=== PATIENT | male | born 1970 | race Native Hawaiian/Other Pacific Islander ===

== ENCOUNTER 2016-11-07 09:43 | Outpatient (CLI) | payer OTHER ==
[~2016-11-07 09:43] MED LIST: CIPRO500 MG PO; CYCL10TA35 PO; HYDR-2748 PO; INSU100I2 SC
== END 2016-11-07 10:45 | disposition home or self-care (01) ==
LOC: RAD 09:43
DX: M86.8X7 Other osteomyelitis, ankle and foot (principal)

== ENCOUNTER 2016-12-27 15:21 | Inpatient (IN) | payer BC ==
[2016-12-27] VITALS (11 sets, daily range): BP systolic 105–132; BP diastolic 58–74; TEMP 98–99.3; Ht 182.9 cm; Wt 74.6 kg
[~2016-12-27] VITALS: Ht 182.9 cm; Wt 74.6 kg
[2016-12-27 16:29] LABS: PLATELET COUNT 323 K/uL (142-355)
[2016-12-27 16:39] LABS: POTASSIUM 5.3 mmol/L (3.6-5.2)
[2016-12-27 20:17] LABS: POTASSIUM 5.5 mmol/L (3.6-5.2)
[2016-12-28] VITALS (23 sets, daily range): BP systolic 111–162; BP diastolic 65–95; TEMP 98–99
[2016-12-28 00:32] LABS: POTASSIUM 4.3 mmol/L (3.6-5.2)
[2016-12-28 06:28] LABS: POTASSIUM 4.1 mmol/L (3.6-5.2)
[2016-12-28 06:48] LABS: PLATELET COUNT 314 K/uL (142-355)
[2016-12-29] VITALS (23 sets, daily range): BP systolic 124–170; BP diastolic 76–104; TEMP 96.9–99
[2016-12-29 04:53] LABS: PLATELET COUNT 220 K/uL (142-355)
[2016-12-29 05:06] LABS: POTASSIUM 3.7 mmol/L (3.6-5.2); SODIUM 143 mmol/L (136-145)
[2016-12-30] VITALS (18 sets, daily range): BP systolic 128–171; BP diastolic 86–103; TEMP 98–99
[2016-12-30 07:54] LABS: PLATELET COUNT 202 K/uL (142-355)
[2016-12-30 08:16] LABS: POTASSIUM 3.8 mmol/L (3.6-5.2); SODIUM 140 mmol/L (136-145)
[2016-12-31] VITALS (10 sets, daily range): BP systolic 137–174; BP diastolic 85–100; TEMP 98–99.3
[2016-12-31 09:03] LABS: POTASSIUM 3.3 mmol/L (3.6-5.2); SODIUM 142 mmol/L (136-145)
[2017-01-01] VITALS: BP 128/69; TEMP 98.6
[2017-01-01 04:00] VITALS: BP 133/82; TEMP 98.3
[2017-01-01 05:37] LABS: POTASSIUM 3.4 mmol/L (3.6-5.2); SODIUM 141 mmol/L (136-145)
[2017-01-01 08:00] VITALS: BP 139/87; TEMP 99
== END 2017-01-01 10:40 | disposition home or self-care (01) | DRG 638 ==
LOC: ED 15:21 → ICU 17:15 → MED/SURG 12-31 11:30
PROVIDERS: Emergency Medicine; Internal Medicine
DX: E10.10 Type 1 diabetes mellitus with ketoacidosis without coma (principal); E87.2 Acidosis; J06.9 Acute upper respiratory infection, unspecified; G47.09 Other insomnia; Z91.14 Patient's other noncompliance with medication regimen; R03.0 Elevated blood-pressure reading, without diagnosis of hypertension
CPT/HCPCS: 36415; 36600; 80048; 80053; 80307; 81000; 81002; 82150; 82550; 82805; 82947; 82948; 82962; 83036; 83605; 83690; 83735; 84443; 85027; 87081; 87880; 96365; 96372; 96374; 96375; 99285; G0479; J1650; J1815; J2405; J3411; J3490

== ENCOUNTER 2017-02-24 08:22 | Outpatient (CLI) | payer BC ==
[2017-02-24 08:55] LABS: PLATELET COUNT 251 K/uL (142-355)
[2017-02-24 09:06] LABS: POTASSIUM 4.7 mmol/L (3.6-5.2); SODIUM 137 mmol/L (136-145)
== END 2017-02-25 05:17 | disposition home or self-care (01) ==
LOC: LABW 08:22
PROVIDERS: Internal Medicine
DX: E10.9 Type 1 diabetes mellitus without complications (principal)
CPT/HCPCS: 36415; 80053; 80061; 81000; 82043; 82570; 83036; 84443; 85027

== ENCOUNTER 2018-02-05 14:27 | Emergency (ER) | payer OTHER ==
[~2018-02-05] VITALS: Ht 182.9 cm; Wt 73.5 kg
[2018-02-05 15:46] LABS: PLATELET COUNT 241 K/uL (142-355)
[2018-02-05 16:13] LABS: POTASSIUM 4.5 mmol/L (3.6-5.2)
[2018-02-05 16:45] VITALS: BP 151/92; TEMP 97.9
== END 2018-02-05 16:45 | disposition home or self-care (01) ==
LOC: ED 14:27
DX: S00.93XA Contusion of unspecified part of head, initial encounter (principal); E11.9 Type 2 diabetes mellitus without complications; W19.XXXA Unspecified fall, initial encounter
CPT/HCPCS: 36415; 80053; 82550; 82553; 84484; 85027; 93005; 99283

== ENCOUNTER 2018-10-23 12:13 | Inpatient (IN) | payer OTHER ==
[2018-10-23] VITALS (20 sets, daily range): BP systolic 92–130; BP diastolic 51–79; TEMP 98.1–98.8; Ht 182.9 cm; Wt 72.7 kg
[~2018-10-23] VITALS: Ht 182.9 cm; Wt 72.7 kg
[2018-10-23 12:52] LABS: PLATELET COUNT 258 K/uL (142-355)
[2018-10-23 13:07] LABS: POTASSIUM 4.5 mmol/L (3.6-5.2)
[2018-10-24] VITALS (24 sets, daily range): BP systolic 105–161; BP diastolic 62–96; TEMP 97.9–98.5
[2018-10-24 06:34] LABS: PLATELET COUNT 235 K/uL (142-355)
[2018-10-24 06:48] LABS: POTASSIUM 4.3 mmol/L (3.6-5.2)
[2018-10-25] VITALS (24 sets, daily range): BP systolic 101–171; BP diastolic 71–95; TEMP 98–98.9
[2018-10-25 03:14] LABS: PLATELET COUNT 203 K/uL (142-355)
[2018-10-25 03:23] LABS: POTASSIUM 3.4 mmol/L (3.6-5.2)
[2018-10-26] VITALS (9 sets, daily range): BP systolic 103–164; BP diastolic 67–90; TEMP 97.9–98.5
[2018-10-26 04:24] LABS: PLATELET COUNT 190 K/uL (142-355)
[2018-10-26 04:45] LABS: POTASSIUM 3.8 mmol/L (3.6-5.2)
== END 2018-10-26 09:45 | disposition home or self-care (01) | DRG 638 ==
LOC: ED 12:13 → PCU 17:45
PROVIDERS: Internal Medicine; Psychiatry & Neurology Neurology with Special Qualifications in Child Neurology; ADMIT Family Medicine
DX: E10.10 Type 1 diabetes mellitus with ketoacidosis without coma (principal); E87.2 Acidosis; Z79.4 Long term (current) use of insulin; E86.0 Dehydration; R82.4 Acetonuria; E87.6 Hypokalemia
CPT/HCPCS: 36415; 36600; 80053; 81000; 81002; 82150; 82805; 83690; 85027; 96360; 96361; 96375; 99285; J1815

== ENCOUNTER 2018-12-11 04:38 | Inpatient (IN) | payer OTHER ==
[2018-12-11] VITALS (22 sets, daily range): BP systolic 99–144; BP diastolic 52–84; TEMP 97.1–98.5; Ht 182.9 cm; Wt 69.9 kg
[~2018-12-11] VITALS: Ht 182.9 cm; Wt 69.9 kg
[2018-12-11 05:29] LABS: PLATELET COUNT 286 K/uL (142-355)
[2018-12-11 06:10] LABS: POTASSIUM 4.5 mmol/L (3.6-5.2); SODIUM 133 mmol/L (136-145)
--- NOTE | 2018-12-11 08:20 | NUR ---
PT TO ICU BED 1 FROM ER STRETCHER FROM ER. PT WITH IV NS AT 100CC/HR & INSULIN DRIP AT 5U/HR INFUSING INTO L AC 20G WITHOUT PROBLEMS.
--- NOTE | 2018-12-11 08:40 | NUR ---
DR CHANG IN TO SEE PT. NEW ORDERS.
[2018-12-11] MEDS ORDERED: LISI10TA11 PO (09:46)
[2018-12-11] MEDS ORDERED: HUMALOG KW100 UNIT/M SC (09:46)
[2018-12-11] MEDS ORDERED: TOUJEO SOL300 UNIT/M SC (09:48)
--- NOTE | 2018-12-11 10:55 | NUR ---
ABD XRAY TO DR CHANG. NEW ORDERS. PT RESTING SUPINE WITH EYES CLOSED.
--- NOTE | 2018-12-11 11:15 | NUR ---
RADIOLOGY IN FOR ABD US. PT RESTING ON R SIDE.
--- NOTE | 2018-12-11 12:30 | NUR ---
LAB HERE FOR BLOOD DRAW. PT RESTING IN LF. NO C/O AT THIS TIME.
[2018-12-11 13:03] LABS: POTASSIUM 4.2 mmol/L (3.6-5.2)
--- NOTE | 2018-12-11 14:15 | NUR ---
PT UP TO STAND AT BS. VD 450 ML MED LORRI URINE.
--- NOTE | 2018-12-11 16:40 | NUR ---
DR CHANG CALLED TO CK ON PT. REVIEWED LABS & XRAYS.
--- NOTE | 2018-12-11 18:00 | NUR ---
PT RESING QUIETLY WITH EYES CLOSED. NO C/O PAIN.
[2018-12-11 19:35] LABS: POTASSIUM 4.5 mmol/L (3.6-5.2)
--- NOTE | 2018-12-11 22:25 | NUR ---
PT VOIDED 300 ML OF YELLOW URINE. PT WITH NO COMPLAINTS.
[2018-12-12] VITALS (19 sets, daily range): BP systolic 117–174; BP diastolic 70–95; TEMP 97.4–98.7
--- NOTE | 2018-12-12 02:22 | NUR ---
LAB HERE TO DRAW BLOOD.
--- NOTE | 2018-12-12 04:11 | NUR ---
BS BEING CHECKED EVERY HOUR. KETONES ARE LARGE POSITIVE FROM BLOOD DRAW. PT ALERT AND HAS NOT SLEPT. NO COMPLAINTS OF NAUSEA OR VOMITING.
[2018-12-12 04:39] LABS: PLATELET COUNT 230 K/uL (142-355)
[2018-12-12 07:43] LABS: POTASSIUM 3.6 mmol/L (3.6-5.2)
--- NOTE | 2018-12-12 08:08 | NUR ---
AM ASSESSEMENT DONE PATIENT RESTING IN BED STATES "FEELING BETTER" NO NAUSEA NO PAINS. LABS DRAWN BLOOD SUGAR [address]CRE[address]ED D5NS TO 175. DR CHANG VISITED CHECKED PATIENT RECIEVED NEW ORDERS,
--- NOTE | 2018-12-12 08:15 | NUR ---
SMALL KETONES REPORTED.
--- NOTE | 2018-12-12 09:10 | NUR ---
SITTING UP IN BED BLOOD SUGAR 74 D5NS INFUSING AT 175 ML HR. INSULIN DRIP INFUSING AT 1 UNIT HR. RECIEVED DIET ORDERS PT ATE 100% 1800 ADA BREAKFAST. NO COMPLAINTS OF NAUSEA, WILL CONTINUE TO MONITOR BLOOD GLUCOSE. OFFERED TO ASSIT PT TO CHAIR. C/O BACK PAINS "FROM BED".
--- NOTE | 2018-12-12 09:56 | NUR ---
Patient was admitted with DKA and was in the hospital recently with DKA and he ran out of medicine and MD changed to a cheaper insulin lantus, patient could not afford insulin. On 1800 calorie diet and RBC and HGB and HCT depresses. ON SS insulin and having N/V and abd pain and is 6' at 156.1 lbs. and IBW 178+/-10% and is 88% IBW and BMI 21.2 and is wnl's and kcal for IBW 2400, pro 80-121 grams and fluids for weight x 30 = 2128 and x 35 d/t n/v = 2483 ml per day. Recommend: 1-Add a MVI 1 po q day 2-Increase Kcal to 2400 calorie and if eating <50% of meals add Glucerna to promote weight gain 3-Increase Fluids as tolerated.
--- NOTE | 2018-12-12 10:14 | NUR ---
BLOOD SUGAR 168, D5 NS TURNED DOWN TO 125 ML HR. FAMILY MEMBERS HERE FOR VISIT, BROUGHT HOME MEDS. PATIENT TOOK HIS OWN LISINOPRIL. RECIEVED CALLED FROM DR CARDENAS OFFICE TO RESUME LISINOPRIL PO BID AND TYLENOL PRN FOR PAIN. INSULIN DRIP CONTINUES AT 1 UNIT HR.
--- NOTE | 2018-12-12 11:13 | NUR ---
BLOOD SUGAR CONTINUE TO CLIMB. GLUCOSE FINGER STICK 231. WILL CHANGE IV FLUIDS FROM D5NS AT 125 TO NS AT 125. INSULIN DRIP CONTINUES AT 1 UNIT HR. PATIENT ATE ALL BREAKFAST TAKING PO DIABETIC FLUIDS. CONTINUE TO DENY ANY NAUSEA, UP TO BATHROOM FOR BM. PT HAVING DIARRHEA, STATES " I HAVE IT ALL THE TIME". WILL REPORT TO .
--- NOTE | 2018-12-12 11:55 | NUR ---
NOTED ELEVATED B/P PATIENT STATED THAT HE HASN'T TAKEN B/P MEDS IN A COUPLE OF DAYS. TOOK HIS LISINOPRIL THIS AM. WILL CONTINUE TO MONITOR. B/P 167/92. BACK TO BED AFTER GOING TO BATHROOM STATED THAT HIS BACK HAS EASED OFF FOR NOW, NO PAIN MED GIVEN.
--- NOTE | 2018-12-12 13:34 | NUR ---
PATIENT SITTING UP IN BED NO COMPLAINTS VOICE. ATE 100% LUNCH TRAY. INSULIN CONTINUES AT 1 UNIT HR. NS CONTINUES AT 125 ML HR. CHECKED BLOOD SUGAR 176. NO ACUTE DISTRESS.
--- NOTE | 2018-12-12 15:00 | NUR ---
CALL MADE TO LAB DRAW BMP AND SERUM KETONES NOW. CONTINUE TO MONITOR BLOOD SUGAR AND CHECKING POTASSIUM LEVEL. PATIENT SITTING UP IN BED ON PHONE, NO COMPLAINTS OF PAIN IV FLUIDS CONTINUE ORDERED.
[2018-12-12 15:19] LABS: POTASSIUM 4.2 mmol/L (3.6-5.2)
--- NOTE | 2018-12-12 16:00 | NUR ---
CALLED TO DR CHANG REPORT PT STATUS AND LABS, KETONES NEGATIVE RECIEVED ORDERS TO STOP INSULIN DRIP. START SSI AND SCHEDULED INSULIN. PT RESTING IN BED NO COMPLAINTS. NS CONTINUES AT 125.
--- NOTE | 2018-12-12 17:15 | NUR ---
ADMITTED 52 YEAR OLD MALE TO ICU FROM ER VIA STRETCHER. ADMITTED TO DR CAHNG SERVICES DX NEW ONSET SEIZURES,HTN, PATIENT ALERT TALKING PLACED ON MONITOR. PT INC OF URINE, SMELLS STRONG ODOR. ORIENTED TO ICU. LOU ARELLANO FROM ER ASSITED WITH PATIENT CARE.
--- NOTE | 2018-12-12 17:45 | NUR ---
DR CHANG HERE TO SEE PATIENT. GIVING ORDERS. DRAWING BLOOD FOR LABS. STARTING 2 IV SITES TO GIVE MEDS. STARTED D5W AND BICARB ORDERED. MIXING BANNA BAG. APPLIED CLONIDINE PATCH FOR FOR ELEVATED B/P.
--- NOTE | 2018-12-12 18:30 | NUR ---
PATIENT UP IN BED FOR DINNER FELICIA WELL NO COMPLAINTS BLOOD SUGAR 209 RECIEVED 6 UNITS NOVOLOG SQ. NO COMPLAINTS.
--- NOTE | 2018-12-12 20:00 | NUR ---
RECEIVED REPORT FROM CUAUHTEMOC SINGLETON RN. PATIENT IS RESTING QUIETLY. PATIENT REQUESTED ASSISTANCE WITH IV PUMP TO BATHROOM. PATIENT ABLE TO AMBULATE SLOWELY TO THE BATHROOM WITHOUT ASSISTANCE. UPON RETURN PATIENT STATED HE HAD ONE LOOSE BOWEL MOVEMENT. SHIFT ASSESSMENT COMPLETED AT THIS TIME.
--- NOTE | 2018-12-12 21:30 | NUR ---
CURRENT BLOOD SUGAR READING 378. PATIENT COVERED WITH 5 UNITS OF HUMALOG SUBQ TO HIS RIGHT ARM AND LEVEMIR 15 UNITS SUBQ TO THE RIGHT ARM. PATIENT TOLERATED WELL. WILL FOLLOW BLOOD SUGAR PRN AND BMP/CMP IN THE MORNING.
--- NOTE | 2018-12-12 23:36 | NUR ---
URINAL EMPTIED APPROX. 700 ML OF CLEAR YELLOW URINE NOTED. PATIENT IS RESTING WITH EYES CLOSED. NO ACUTE DISTRESS NOTED.
[2018-12-13] VITALS (12 sets, daily range): BP systolic 113–198; BP diastolic 77–95; TEMP 98–98.2
--- NOTE | 2018-12-13 02:16 | NUR ---
PATIENT IS RESTING WITH EYES CLOSED. NO ACUTE DISTRESS NOTED AT THIS TIME. CURRENT BLOOD PRESSURE READING 139/81.
--- NOTE | 2018-12-13 04:20 | NUR ---
PATIENT IS AWAKE WATCHING TV. PATIENT USED URINAL APPROX. 400 ML OF CLEAR YELLOW URINE NOTED. URINAL EMPTIED AND PLACED AT THE BEDSIDE.
--- NOTE | 2018-12-13 05:11 | NUR ---
LAB HERE AT THE BEDSIDE DRAWING MORNING LABS.
[2018-12-13 05:37] LABS: PLATELET COUNT 233 K/uL (142-355)
[2018-12-13 06:19] LABS: POTASSIUM 3.8 mmol/L (3.6-5.2)
--- NOTE | 2018-12-13 06:23 | NUR ---
THIS MORNING BMP SHOWED GLUCOSE OF 94. PATIENT IS CURRENTLY RESTING WITH EYES CLOSED IN NO ACUTE DISTRESS. CURRENT BLOOD PRESSURE READING 122/76.
--- NOTE | 2018-12-13 08:18 | NUR ---
PATIENT RESTING IN BED TAKING PO DIABETIC FLUIDS PO. STATES "FEELING OK" DENIES PAIN. IV FLUIDS INFUSING WITHOUT DIFFICULTY. DR BERNARDO GEORGE CHECKED PATIENT RECIEVED NEW ORDERS. PATIENT TO MOVE TO MED SURG FLOOR.
--- NOTE | 2018-12-13 09:00 | NUR ---
PATIENT SITTING UP IN BED NO COMPLAINTS, EATING BREAKFAST TALKING WITH PATIENT ABOUT DIABETES AND INSULIN. LAST SUGAR CHECK 0500 94. CHECKED BLOOD SUGAR AT THIS TIME 47. PATIENT RECIEVED LANTUS LAST NIGHT AT BEDTIME. CALL MADE TO DR CHANG. DID NOT CHANGE INSULIN ORDERS PT WILL NEED TO GET SNACKS BETWEEN MEALS. TO KEEP BLOOD SUGAR FROM DROPPING. PATIENT ATE ALL BREAKFAST WILL RECHECK IN 1 HOUR.
--- NOTE | 2018-12-13 10:00 | NUR ---
BLOOD SUGAR CHECKED 121 PT STATES "FEELING OK"
--- NOTE | 2018-12-13 11:00 | NUR ---
NAKIA REDD DIETITIAN STOPPED TALKED WITH PATIENT ABOUT DIABETES AND DIETS.
--- NOTE | 2018-12-13 12:15 | NUR ---
PATIENT MOVED TO ROOM 1116 VIA W/C ORIENTED TO ROOM. CALLED HIS TO BRING CLOTHS WILL TAKE A SHOWER. REPORT TO MED SURG FLOOR AGNES HERNANDEZ RN. PATIENT DISCHARGED FROM ICU.
--- NOTE | 2018-12-13 15:49 | NUR ---
1400 PT TRANSFERRED TO [facility] VIA PER CUAUHTEMOC SINGLETON RN. PT ASSISTED TO ROOM 116. PT AWAKE AND ALERT. NO ACUTE DISTRESS NTOED.
[2018-12-14] VITALS: BP 154/97; TEMP 98.4
[2018-12-14 04:00] VITALS: BP 130/86; TEMP 98.1
[2018-12-14 04:24] LABS: PLATELET COUNT 228 K/uL (142-355)
[2018-12-14 04:36] LABS: POTASSIUM 4.4 mmol/L (3.6-5.2)
[2018-12-14 08:00] VITALS: BP 142/79; TEMP 97.9
--- NOTE | 2018-12-14 09:30 | NUR ---
ENOXAPARIN SODIUM AND PROTONIX NOT GIVEN DUE TO PT BEING DISCHARGED.
== END 2018-12-14 10:50 | disposition home or self-care (01) | DRG 639 ==
LOC: ED 04:38 → ICU 06:44 → MED/SURG 12-13 12:15
PROVIDERS: Internal Medicine; ADMIT Student in an Organized Health Care Education/Training Program
DX: E10.10 Type 1 diabetes mellitus with ketoacidosis without coma (principal); Z79.4 Long term (current) use of insulin; E86.0 Dehydration; K80.20 Calculus of gallbladder without cholecystitis without obstruction
CPT/HCPCS: 36415; 36600; 80048; 80053; 81000; 81002; 82805; 82962; 83036; 83690; 83735; 84484; 85027; 87502; 93005; 96360; 96361; 96365; 96366; 96375; 99285; J1650; J1815; J1885; J2405; J3475; J3490

== ENCOUNTER 2019-01-08 12:44 | Outpatient (CLI) | payer OTHER ==
[~2019-01-08 12:44] MED LIST changes: +HUMALOG KW100 UNIT/M SC; +LISI10TA11 PO; +TOUJEO SOL300 UNIT/M SC
== END 2019-01-08 22:31 | disposition home or self-care (01) ==
LOC: NM 12:44
DX: K80.20 Calculus of gallbladder without cholecystitis without obstruction (principal)
CPT/HCPCS: A9537

== ENCOUNTER 2019-02-25 08:33 | Inpatient (IN) | payer OTHER ==
[~2019-02-25] VITALS: Ht 182.9 cm; Wt 69.0 kg
[2019-02-25] VITALS (10 sets, daily range): BP systolic 116–163; BP diastolic 80–92; TEMP 97.9–98.2; Ht 182.9 cm; Wt 69.0 kg
[2019-02-25 09:29] LABS: POTASSIUM 4.1 mmol/L (3.6-5.2); SODIUM 140 mmol/L (136-145)
[2019-02-25 09:36] LABS: PARTIAL THROMBOPLASTIN TIME 24.6 SECONDS (24.5-33.6)
[2019-02-25 09:48] LABS: PLATELET COUNT 233 K/uL (142-355)
[2019-02-26] VITALS (7 sets, daily range): BP systolic 96–126; BP diastolic 56–84; TEMP 97.5–98.6
--- NOTE | 2019-02-27 01:54 | NUR ---
02/27/19 0155 RESTING SUPINE POSTIION RESP EVEN NONLABORED NAD NOTED.CALL LIGHT WITHIN REACH.
[2019-02-27 04:00] VITALS: BP 101/63; TEMP 97.8
[2019-02-27 04:40] LABS: PLATELET COUNT 230 K/uL (142-355)
[2019-02-27 04:54] LABS: POTASSIUM 4.4 mmol/L (3.6-5.2)
--- NOTE | 2019-02-27 07:30 | NUR ---
PT SITTING UP IN BED WATCHING TV, A&O, DENIES PAIN. ATTITUDE PLEASANT.
[2019-02-27 08:06] VITALS: BP 93/53; TEMP 98.4
--- NOTE | 2019-02-27 09:22 | NUR ---
DR CHANG IN TO SEE PT. NEW ORDERS.FAMILY AT BS.
--- NOTE | 2019-02-27 10:30 | NUR ---
PT TO OT.
--- NOTE | 2019-02-27 11:20 | NUR ---
BACK FROM OT. PT SITTING UP ON SIDE OF BED, FAMILY AT BS. WILL GO TO PT AFTER LUNCH.
[2019-02-27 12:47] VITALS: BP 113/77; TEMP 97.6
[2019-02-27 17:53] VITALS: BP 124/81; TEMP 98.4
--- NOTE | 2019-02-27 17:55 | NUR ---
PT RESTING IN LF WITH FAMILY AT , DENIES PAIN AT THIS TIME. GAIT REMAINS UNSTEADY.
[2019-02-27 20:00] VITALS: BP 103/65; TEMP 98
[2019-02-27 23:47] VITALS: BP 101/68; TEMP 97.7
[2019-02-28 04:00] VITALS: BP 101/56; BP 152/112; TEMP 97.8; TEMP 98.4
[2019-02-28 08:19] VITALS: BP 109/50; TEMP 97.7
--- NOTE | 2019-02-28 08:24 | NUR ---
0820 SPOKE WITH [facility] IN UR CONCERNING REFERAL FOR OUTPT THERAPY.
--- NOTE | 2019-02-28 08:59 | NUR ---
09 REFERAL MADE TO PT FOR OUTPT PT/OT PER RAMIRO. JULY IN PT WILL CONTACT PT WITH APPT DATE AND TIME.
[2019-02-28 14:04] VITALS: BP 113/77; TEMP 97.9
--- NOTE | 2019-02-28 16:20 | NUR ---
IV D/C'D CANNULA INTACT. SITE SECURED. D/C INSTRUCTIONS, PT & VERBALIZED UNDERSTANDING.
[2019-02-28 16:28] VITALS: BP 109/71; TEMP 98.2
--- NOTE | 2019-02-28 16:28 | NUR ---
PT D/C STABLE VIA WC TO PRIVATE AUTO PER AVIVA ÁLVAREZ RN.
--- NOTE | 2019-02-28 18:24 | NUR ---
PT CALLED BACK, MED HE HAS FOR CHOLESTEROL IS NOT WHAT DR CHANG ORDERED, IT WAS THE KIND THAT GAVE HIM DIARRHEA. DR ADAMS NOTIFIED. ATORVASTATIN 10MG PO QHS # [phone] CALLED TO RAM[facility]O. PT NOTIFIED.
== END 2019-02-28 16:31 | disposition home or self-care (01) | DRG 64 ==
LOC: ED 08:33 → MED/SURG 10:20
PROVIDERS: Internal Medicine; ADMIT Student in an Organized Health Care Education/Training Program
DX: I63.81 Other cerebral infarction due to occlusion or stenosis of small artery (principal); E10.10 Type 1 diabetes mellitus with ketoacidosis without coma; E10.42 Type 1 diabetes mellitus with diabetic polyneuropathy; K21.9 Gastro-esophageal reflux disease without esophagitis
CPT/HCPCS: 80053; 80061; 82947; 82962; 83036; 83735; 84443; 84484; 85027; 85379; 85610; 85730; 93005; 93306; 99284; J1650; J1815

== ENCOUNTER 2021-10-07 12:46 | Outpatient (CLI) | payer OTHER | END 2021-10-07 21:22 | disposition home or self-care (01) | LOC: MRI 12:46 | PROVIDERS: ATTEND Podiatrist | DX: L03.116 Cellulitis of left lower limb (principal) | CPT/HCPCS: A9576 ==